=== PATIENT | male | born 1985 | race Caucasian/White ===

== ENCOUNTER 2016-05-06 15:11 | Emergency (ER) | payer SELFPAY ==
[~2016-05-06] VITALS: Ht 172.7 cm; Wt 122.0 kg
[2016-05-06 15:51] VITALS: Ht 172.7 cm; Wt 122.0 kg
[2016-05-06] MEDS ORDERED: KETOROLAC 15 MG INJ IM STA (19:01)
[2016-05-06] MEDS ORDERED: IBUP800T25 PO (19:09)
[2016-05-06] MEDS ORDERED: DIAZ-90 PO (19:09)
--- NOTE | 2016-05-06 19:13 | ERD ---
ER Documentation Chief Complaint Date/Time DATE: 05/06/16 TIME: 19:11 Chief Complaint Pt with low back pain x 2 days. HPI 30-year-old male who presents with lumbar back pain. He describes several days of gradual onset dull throbbing bilateral paraspinal lumbar back pain that is nonradiating. No bowel or bladder incontinence or retention. The patient states that the pain is worse with rotational movement and worse with bending over. No fevers or chills, no dysuria urgency or frequency. ROS All systems reviewed and are negative except as per history of present illness. Medications Home Meds Active Scripts Diazepam* (Valium*) 5 Mg Tablet, 5 MG PO Q8 Y for MUSCLE SPASMS, #5 TAB Prov:EDGARDO PINTO MD 05/06/16 Ibuprofen* (Motrin*) 800 Mg Tab, 800 MG PO Q6H Y for PAIN AND OR ELEVATED TEMP, #30 TAB Prov:EDGARDO PINTO MD 05/06/16 Allergies Allergies: Coded Allergies: No Known Allergy (Unverified , 05/06/16) PMhx/Soc Medical and Surgical Hx: pt denies Medical Hx, pt denies Surgical Hx Hx Alcohol Use: No Hx Substance Use: No Hx Tobacco Use: No FmHx Family History: No diabetes Physical Exam Vitals Vital Signs Date Time Temp Pulse Resp B/P Pulse Ox O2 Delivery O2 Flow Rate FiO2 05/06/16 15:51 97.8 102 18 181/81 99 Physical Exam General: Well developed, well nourished, no acute distress Head: Normocephalic, atraumatic. Eyes: Pupils equally reactive, EOM intact ENT: Moist mucous membranes Neck: Supple, no lymphadenopathy Respiratory: Lungs clear bilaterally, no distress Cardiovascular: RRR, no murmurs, rubs, or gallops Abdominal: Soft, non-tender, non-distended, no peritoneal signs Back: No midline tenderness deformities or step-offs, mild reproducible soft tissue paraspinal lumbar back tenderness. : Deferred MSK: No edema, no unilateral swelling, 5/5 strength Neurologic: Alert and oriented, moving all extremities, normal speech, no focal weakness, no cerebellar signs Skin: No rash Psych: Normal mood Results 24 hrs Current Medications Medications (Trade) Dose Ordered Sig/Julianna Route PRN Reason Start Time Stop Time Status Last Admin Dose Admin Ketorolac Tromethamine (Toradol) 15 mg ONCE STAT IM 05/06/16 19:01 05/06/16 19:02 DC 05/06/16 19:05 Procedures/MDM The patient's low back pain is unlikely related to serious etiology. The patient exhibits no clinical signs or symptoms and has no history or risk factors to suggest cauda equina, cord compression, epidural abscess, epidural hematoma, acute aortic aneurysm or dissection. Patient's blood pressure was elevated (>120/80) but appears stable without evidence of hypertensive emergency or urgency. The patient was counseled about the risks of hypertension and urged to pursue outpatient monitoring and therapy within a week with their primary care physician. The patient's hypertension is likely related to pain response. He has no risk factors for acute vascular pathology. The patient does not require diagnostic imaging. Patient was given Toradol. His pain is improved. The patient will be discharged home with pain medication and muscle relaxant medication. We discussed follow up with the patient's primary care doctor within 24 to 48 hours as needed. We also discussed return to the emergency room for worsening symptoms or worsening condition. Discharge Medications: Motrin, Valium Departure Diagnosis: Primary Impression: Back pain Back pain location: low back pain Chronicity: acute Back pain laterality: bilateral Sciatica presence: without sciatica Qualified Code: M54.5 - Acute bilateral low back pain without sciatica Condition: Stable Patient Instructions: Back Pain (Acute Or Chronic) Referrals: COMMUNITY CLINICS YOU HAVE RECEIVED A MEDICAL SCREENING EXAM AND THE RESULTS INDICATE THAT YOU DO NOT HAVE A CONDITION THAT REQUIRES URGENT TREATMENT IN THE EMERGENCY DEPARTMENT. FURTHER EVALUATION AND TREATMENT OF YOUR CONDITION CAN WAIT UNTIL YOU ARE SEEN IN YOUR DOCTORS OFFICE WITHIN THE NEXT 1-2 DAYS. IT IS YOUR RESPONSIBILITY TO MAKE AN APPOINTMENT FOR FOLOW-UP CARE. IF YOU HAVE A PRIMARY DOCTOR --you should call your primary doctor and schedule an appointment IF YOU DO NOT HAVE A PRIMARY DOCTOR YOU CAN CALL OUR PHYSICIAN REFERRAL HOTLINE AT IF YOU CAN NOT AFFORD TO SEE A PHYSICIAN YOU CAN CHOSE FROM THE FOLLOWING [facility] [address] [facility] [address] [facility]. [facility] [address] [facility] [address] [facility]. [facility] [address] [facility]. [facility]. [address] [facility]. [facility] YOU HAVE RECEIVED A MEDICAL SCREENING EXAM AND THE RESULTS INDICATE THAT YOU DO NOT HAVE A CONDITION THAT REQUIRES URGENT TREATMENT IN THE EMERGENCY DEPARTMENT. FURTHER EVALUATION AND TREATMENT OF YOUR CONDITION CAN WAIT UNTIL YOU ARE SEEN IN YOUR DOCTORS OFFICE WITHIN THE NEXT 1-2 DAYS. IT IS YOUR RESPONSIBILITY TO MAKE AN APPOINTMENT FOR FOLOW-UP CARE. IF YOU HAVE A PRIMARY DOCTOR --you should call your primary doctor and schedule and appointment IF YOU DO NOT HAVE A PRIMARY DOCTOR YOU CAN CALL OUR PHYSICIAN REFERRAL HOTLINE AT . IF YOU CAN NOT AFFORD TO SEE A PHYSICIAN YOU CAN CHOSE FROM THE FOLLOWING [facility] INSTITUTIONS: [facility] [address] [place] [address] [facility] [address] [place] [address] [facility] [address] [place] [address] Additional Instructions: Llame al doctor nombrado abajo (Referral Sources) MAANA y roxy jennifer RAUL PARA DENTRO DE JENNIFER SEMANA. Dgale a la secretaria que nosotros le instruimos hacer esta raul.Avise o llame si foster condicin se empeora antes de la raul.Call your primary care doctor TOMORROW for an appointment during the next 1 WEEK.Tell the legal secretary that you were referred from this facility.See the doctor sooner or return here if your condition worsens before your appointment time. Call your primary care doctor TOMORROW for an appointment during the next 1 WEEK.Tell the legal secretary that you were referred from this facility.See the doctor sooner or return here if your condition worsens before your appointment time. EDGARDO PINTO MD May 06, 2016 19:13
[2016-05-06 19:25] VITALS: BP 146/79; PULSE 89; RESP 16; TEMP 98.1
== END 2016-05-06 19:27 | disposition home or self-care (01) ==
LOC: FTE 15:11
DX: M54.5 Low back pain (principal)
CPT/HCPCS: 96372; J1885